=== PATIENT | male | born 1960 | race Caucasian/White ===

== ENCOUNTER 2020-01-01 02:58 | Observation (INO) ==
[2020-01-01] MEDS ORDERED: Aspirin 81 MG TAB.CHEW PO ONE (03:20)
[2020-01-01] MEDS ORDERED: *HR* HYDROmorphone (PF) 1 MG/ML SYRINGE IVP ONE (03:20)
[2020-01-01] MEDS ORDERED: Ondansetron 4 MG/2 ML VIAL IVP PRN ×3 (03:25→16:15)
[2020-01-01 03:28] LABS: Basophils % 0.1 %; Eosinophils % 0.2 %; Hematocrit 45.4 % (37.5-50.1); Hemoglobin 15.6 g/dL (12.9-16.9); Immature Granulocytes % 0.4 % (0-4); Lymphocytes # 1.9 K/mcL (0.6-4.6); Lymphocytes % 15.5 %; Mean Corpuscular HGB Conc 34.4 g/dL (31.6-35.5); Mean Corpuscular Hemoglobin 32.5 pg (28.0-33.3); Mean Corpuscular Volume 94.6 fL (83.0-100.0); Monocytes # 0.7 K/mcL (0.0-1.3); Monocytes % 5.9 %; Neutrophils # 9.6 K/mcL (1.6-8.9); Platelet Count 180 K/mcL (140-400); Red Cell Distribution Width 11.9 % (11.5-14.5); Segmented Neutrophils % 77.9 %; White Blood Count 12.4 K/mcL (4.3-11.1)
[2020-01-01 03:50] LABS: BUN/Creatinine Ratio 11 (6-26); Blood Urea Nitrogen 10 mg/dL (8-23); Calcium 9.7 mg/dL (8.6-10.3); Carbon Dioxide 23 mEq/L (23-29); Chloride 103 mEq/L (98-107); Glucose 134 mg/dL (70-105); Osmolality,Calculated 283 (280-300); Potassium 3.6 mEq/L (3.5-5.1); Sodium 136 mEq/L (136-145); eGFR For African Americans > 60 (> 60); eGFR For Non-African Americans > 60 (> 60)
[2020-01-01 03:51] LABS: Troponin I < 0.03 ng/mL (< 0.04)
[2020-01-01] MEDS ORDERED: Piperacillin/Tazobactam 3.375 GM in Water for inj. (sterile) 20 ML IVP ONE (04:30)
[2020-01-01] MEDS ORDERED: Naloxone 0.4 MG/ML INJ IVP PRN ×2 (07:17→16:15)
[2020-01-01] MEDS ORDERED: Ketorolac 15 MG/ML VIAL IVP PRN ×2 (07:17→16:15)
[2020-01-01] MEDS ORDERED: *HR* LORazepam 2 MG/ML VIAL IVP PRN ×6 (09:10→16:15)
[2020-01-01] MEDS ORDERED: Piperacillin/Tazobactam 3.375 GM in 0.9 % Sodium Chloride Mini Bag 100 ML IVPB SCH (11:00)
[2020-01-01] MEDS ORDERED: *HR* Midazolam HCl 2 MG/2 ML VIAL ONE ×2 (12:41→14:17)
[2020-01-01] MEDS ORDERED: Lidocaine -MPF 2% 2 ML VIAL ONE (12:41)
[2020-01-01] MEDS ORDERED: Dexamethasone 4 MG/ML VIAL ONE (12:41)
[2020-01-01] MEDS ORDERED: Ondansetron 4 MG/2 ML VIAL ONE (12:41)
[2020-01-01] MEDS ORDERED: *HR* Rocuronium Bromide 50 MG/5 ML VIAL ONE (12:41)
[2020-01-01] MEDS ORDERED: *HR* Propofol 200 MG/20 ML VIAL IVP ONE (12:41)
[2020-01-01] MEDS ORDERED: Ketorolac 30 MG/ML VIAL ONE (12:41)
[2020-01-01] MEDS ORDERED: *HR* FentaNYL (PF) 100 MCG/2 ML VIAL ONE (12:41)
[2020-01-01] MEDS ORDERED: Bupivacaine/EPI 1:200k 0.5%PF 30 ML VIAL ONE (12:52)
[2020-01-01] MEDS ORDERED: Ondansetron 4 MG/2 ML VIAL IVP ONE (12:53)
[2020-01-01] MEDS ORDERED: *HR* OxyCODONE Immed Rel 5 MG TABLET PO PRN (12:53)
[2020-01-01] MEDS ORDERED: *HR* Promethazine 25 MG/ML VIAL IVP PRN (12:53)
[2020-01-01] MEDS ORDERED: *HR* HYDROmorphone PF 0.5 MG/0.5 ML SYRINGE IVP PRN (12:53)
[2020-01-01] MEDS ORDERED: EPHEDrine 50 MG/ML VIAL ONE (14:01)
[2020-01-01] MEDS ORDERED: *HR* HYDROMORPHONE 2 MG/ML VIAL ONE (14:57)
[2020-01-01] MEDS: Pantoprazole 40 MG VIAL IVP SCH (17:59)
[2020-01-01] MEDS ORDERED: Pantoprazole 40 MG VIAL IVP SCH (18:00)
[2020-01-01] MEDS: Piperacillin/Tazobactam 3.375 GM in 0.9 % Sodium Chloride Mini Bag 100 ML IVPB SCH (19:04)
[2020-01-02] MEDS: Piperacillin/Tazobactam 3.375 GM in 0.9 % Sodium Chloride Mini Bag 100 ML IVPB SCH ×2 (03:07→11:45)
[2020-01-02] MEDS: Pantoprazole 40 MG VIAL IVP SCH (06:05)
[2020-01-02 06:45] LABS: Basophils % 0.1 %; Eosinophils % 0.1 %; Hemoglobin 14.3 g/dL (12.9-16.9); Immature Granulocytes % 0.4 % (0-4); Lymphocytes # 1.6 K/mcL (0.6-4.6); Lymphocytes % 11.6 %; Mean Corpuscular Hemoglobin 32.6 pg (28.0-33.3); Mean Corpuscular Volume 95.7 fL (83.0-100.0); Mean Platelet Volume 11.6 fL (9.4-12.4); Monocytes # 0.9 K/mcL (0.0-1.3); Neutrophils # 10.8 K/mcL (1.6-8.9); Platelet Count 157 K/mcL (140-400); Red Blood Count 4.39 M/mcL (4.19-5.50); Red Cell Distribution Width 11.9 % (11.5-14.5); Segmented Neutrophils % 80.8 %; White Blood Count 13.4 K/mcL (4.3-11.1)
[2020-01-02 07:03] LABS: Alanine Aminotransferase 137 Units/L (7-52); Albumin 3.8 g/dL (3.5-5.7); Albumin/Globulin Ratio 1.4 (1.1-2.2); Alkaline Phosphatase 76 Units/L (34-104); Aspartate Amino Transferase 116 Units/L (13-39); BUN/Creatinine Ratio 13 (6-26); Bilirubin,Total 1.1 mg/dL (0.3-1.0); Blood Urea Nitrogen 12 mg/dL (8-23); Calcium 8.9 mg/dL (8.6-10.3); Carbon Dioxide 25 mEq/L (23-29); Chloride 105 mEq/L (98-107); Globulin 2.7 g/dL (2.4-3.5); Glucose 124 mg/dL (70-105); Osmolality,Calculated 285 (280-300); Potassium 3.8 mEq/L (3.5-5.1); Sodium 137 mEq/L (136-145); Total Protein 6.5 g/dL (6.4-8.9); eGFR For African Americans > 60 (> 60); eGFR For Non-African Americans > 60 (> 60)
[2020-01-02 10:21] VITALS: BP 133/74
== END 2020-01-02 14:25 | disposition home or self-care (01) ==
LOC: 3ANU 02:58 → EMEROOARM 02:58 → 3ANU 05:36 → SUATTDRO 05:51
PROVIDERS: ADMIT Internal Medicine; ATTEND Internal Medicine